=== PATIENT | male | born 1955 | race Caucasian/White ===

== ENCOUNTER 2022-05-19 04:42 | Emergency (ER) | payer OTHER, SELFPAY ==
[2022-05-19] VITALS (20 sets, daily range): BP systolic 148–170; BP diastolic 73–103; PULSE 63–108; RESP 12–24; TEMP 36.3; O2SAT 94–100
--- NOTE | ~2022-05-19 | XR_ITS ---
Portable chest x-ray Comparison: None Clinical History: Dyspnea Findings: Calcified right midlung granuloma present. No consolidation or pleural effusion otherwise. Possible COPD. Cardiomediastinal silhouette is unremarkable. Bones and soft tissues are unremarkabl e. Impression: Possible COPD. No consolidation or pleural effusion. Reviewed, dictated and finalized at [facility]. Impression: Possible COPD. No consolidation or pleural effusion.
--- NOTE | 2022-05-19 04:50 | ECG_ITS ---
Measurements Intervals [place] Rate: 79 P: 88 ME: 136 QRS: 84 QRSD: 101 T: 72 QT: 369 QTc: 425 Interpretive Statements SINUS RHYTHM WITH OCCASIONAL SUPRAVENTRICULAR PREMATURE COMPLEXES POSSIBLE LEFT ATRIAL ENLARGEMENT [-0.1mV P WAVE IN V1/V2] NO PREVIOUS ECG AVAILABLE FOR COMPARISON Electronically Signed On 05-19-2022 18:03:08 CDT by Jam Alaniz M.D.
--- NOTE | 2022-05-19 04:57 | ED.GENADULT ---
HPI - General Adult General Chief complaint: Shortness of Breath/Dyspnea Stated complaint: sob Time Seen by Provider: 05/19/22 04:48 History of Present Illness HPI narrative: Patient 66-year-old gentleman who presents the emergency department with chief complaint of shortness of breath. Patient reports that he has prior history of a chemical pneumonitis and also reports that he has history of smoking the patient reports that he recently was with a family member at [facility] when they were getting tubes in their ears and the patient reports that afterwards he started getting an upper respiratory infection the patient reports he has been coughing this had, some whitish sputum production and reports that he has been wheezing a lot. Patient reports that has been progressively getting worse and reports that he feels extremely short of breath. The patient reports that this evening he decided to call EMS for evaluation. Patient reports symptoms are worse with exertion and improved with rest. The patient reports the symptoms have been ongoing for greater than 2 weeks Related Data Allergies Allergy/AdvReac Type Severity Reaction Status Date / Time No Known Allergies Allergy Mild Verified 09/17/21 09:05 Review of Systems Review of Systems: A 10 system review of systems was completed on the patient and is negative except for what is stated in the HPI. Nursing and ancillary documentation was reviewed. 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 HEAD: Normocephalic, atraumatic. EYES: PERRLA and EOMI. ENT: Nares clear, no rhinorrhea or epistaxis. Mucous membranes moist. NECK: Supple. CHEST: Scattered wheezes bilaterally. No respiratory distress. HEART: Regular rate and rhythm. No murmur heard. Normal peripheral pulses. ABDOMEN: Soft, nontender, nondistended, normal active bowel sounds. EXTREMITIES: Normal range of motion. No edema. SKIN: Warm, dry, no rash. NEURO: No focal deficits. Alert and oriented x3. PSYCH: Normal mood and affect. Vital Signs Vital signs: Vital Signs Temperature 36.3 C L 05/19/22 04:44 Pulse Rate 93 05/19/22 04:44 Respiratory Rate 22 H 05/19/22 04:44 Blood Pressure 165/103 H 05/19/22 04:44 Pulse Oximetry 100 04/12/23 04:44 Oxygen Delivery Room Air 05/19/22 04:44 Temperature 36.3 C L 05/19/22 04:44 Pulse Rate 83 05/19/22 06:41 Respiratory Rate 16 05/19/22 06:41 Blood Pressure 155/73 H 05/19/22 06:01 Pulse Oximetry 95 05/19/22 06:01 Oxygen Delivery Room Air 05/19/22 05:21 Medical Decision Making MDM Narrative Medical decision making narrative: Differential diagnosis includes pneumonia, CHF, ACS, pneumothorax, COPD exacerbation, bronchitis EKG interpreted by me was sinus rhythm with a rate of [address] elevation or ST depression COVID flu and RSV were negative Chest x-ray showed no focal infiltrates laboratory studies showed a troponin of less than 0.012. BNP was 50 procalcitonin 0.0 lactic acid is 0.9 CMP was within normal limits CBC showed a white count of 6.6. Patient received 2 breathing treatments in the emergency department as well as IV steroids. Currently the patient is showing no signs of acute coronary syndrome no signs of pneumonia is negative for COVID. If the patient is not hypoxic with an ambulatory trial the plan will be to discharge the patient on p.o. steroids since the symptoms have been ongoing for greater than 2 weeks the patient will be started on doxycycline as the patient is high risk for a bacterial bronchitis. The patient has a prescription for albuterol inhaler and also nebulizer treatments at home and the patient was given a prescription for Tessalon Perles. Vital Signs Vital Signs: Vital Signs Temperature 36.3 C L 05/19/22 04:44 Pulse Rate 93 05/19
[2022-05-19] MEDS: methylPREDNISolone SOD SUCC 125 MG VIAL IV PUSH (05:16)
[2022-05-19] MEDS: IPRATROPIUM BR 0.02% INH SOLN 0.5 MG/2.5 ML VIAL INHALATION ×2 (05:18→06:38)
[2022-05-19] MEDS: LEVALBUTEROL NEB 1.25 MG/3 ML INHALATION ×2 (05:18→06:39)
[2022-05-19 05:26] LABS: Basophils Absolute Auto 0.1 K/mm3 (0.0-0.1); Eosinophils Absolute Auto 0.6 K/mm3 (0-0.3); Eosinophils Percent Auto 8.7 % (0-4.4); Hemoglobin 15.4 g/dL (14.0-18.0); Immature Granulocyte Absolute 0.02 K/mm3 (0.00-0.031); Immature Granulocyte Percent A 0.3 % (0-0.5); Lymphocytes Absolute Auto 1.45 K/mm3 (0.9-3.2); Lymphocytes Percent Auto 21.9 % (18.3-44.2); Mean Corpuscular HGB Conc 34.2 g/dl (32-36); Mean Corpuscular Hemoglobin 33.7 pg (26-34); Mean Corpuscular Volume 98.5 fl (80-100); Monocytes Absolute Auto 0.6 K/mm3 (0.1-0.6); Monocytes Percent Auto 9.5 % (2.6-8.5); Neutrophils Absolute Auto 3.8 K/mm3 (1.3-6.7); Neutrophils Percent Auto 57.6 % (45.5-73.1); Platelet Count Result 235 k/mm3 (150-375); Red Blood Count 4.57 M/mm3 (4.6-6.20); Red Cell Distribution Width 12.5 % (11.5-14.5); White Blood Count 6.6 K/mm3 (4.5-10.0)
[2022-05-19 05:40] LABS: Lactic Acid Reflex 0.9 mmol/L (0.7-2.0)
[2022-05-19 05:42] LABS: INR 1.1; Prothrombin Time 13.4 Seconds (11.1-14.7)
[2022-05-19 05:43] LABS: Partial Thromboplastin Time 25.4 SECONDS (22.3-36.8)
[2022-05-19 05:43] LABS: Alanine Aminotransferase 24 U/L (6-50); Albumin Level 4.7 g/dL (3.5-5.1); Alkaline Phosphatase 93 U/L (38-126); Anion Gap 8 mmol/L (8-16); Aspartate Amino Transferase 26 U/L (17-59); Bilirubin,Total 0.9 mg/dL (0.2-1.3); Blood Urea Nitrogen 10 mg/dL (9-20); Carbon Dioxide 28 mmol/L (22-30); Chloride 101 mmol/L (98-107); Estimated CRCL calculation 75 ml/min; Estimated Glomerular Filt Rate > 60; Glucose 110 mg/dL (65-110); Potassium 3.9 mmol/L (3.4-5.0); Sodium 137 mmol/L (137-145)
[2022-05-19 06:00] LABS: NT Pro B Type Natriuretic Pept 50 pg/mL (19.9-100); Troponin I < 0.012 ng/mL (0.000-0.034)
[2022-05-19 06:02] LABS: Influenza A QL RT-PCR Negative (Negative); Influenza B QL RT-PCR Negative (Negative); RSV RNA, RT-PCR Negative (Negative); SARS-CoV-2 RNA PCR Negative
--- NOTE | 2022-05-19 07:07 | PC.NURSE ---
walking pulse ox completed, maintained 98 percent, provider notified
== END 2022-05-19 07:09 | disposition home or self-care (01) ==
PROVIDERS: Emergency Provider Emergency Medicine; PCP Internal Medicine Infectious Disease
DX: J44.0 Chronic obstructive pulmonary disease with (acute) lower respiratory infection (principal); J20.9 Acute bronchitis, unspecified; J44.1 Chronic obstructive pulmonary disease with (acute) exacerbation; Z20.822 Contact with and (suspected) exposure to COVID-19; Z87.01 Personal history of pneumonia (recurrent); F17.210 Nicotine dependence, cigarettes, uncomplicated; R94.31 Abnormal electrocardiogram [ECG] [EKG]
CPT/HCPCS: 36415; 71045; 80053; 83605; 83880; 84145; 84484; 85025; 85610; 85730; 87040; 87637; 93005; 94640; 96374; 99284; J2930